=== PATIENT | male | born 1985 | race Caucasian/White ===

== ENCOUNTER 2021-10-23 13:21 | Emergency (ER) | payer BC, SELFPAY ==
[2021-10-23 13:33] VITALS: BP 130/96; PULSE 72; RESP 20; TEMP 36.7; O2SAT 96; BMI 23.8
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
--- NOTE | 2021-10-23 13:47 | CRLHL7_ITS ---
For Patients: As a result of the Cures Act, medical imaging exams and procedure reports are released immediately into your electronic medical record. You may view this report before your referring provider. If you have questions, please contact your health care provider. INDICATION: Trauma, right anterior rib pain TECHNIQUE: Chest and right ribs 2 views. COMPARISON: None FINDINGS: Cardiovascular and mediastinum: Heart size and vasculature are normal in caliber and appearance. Mediastinum is within normal limits. Lungs and pleural spaces: Lungs are clear. No sign of infiltrate or mass. No sign of pleural effusion. No pneumothorax. Bones and soft tissues: Detailed oblique images of the right ribs demonstrate no fractures or bone lesions. IMPRESSION: Unremarkable chest and right ribs. Dictated by Brice Madison MD @ 10/23/2021 2:23:12 PM Dictated by: Brice Madison MD @ 10/23/2021 14:23:18 (Electronically Signed)
[2021-10-23 15:12] VITALS: BP 126/93; PULSE 60; RESP 16; TEMP 36.7; O2SAT 100
== END 2021-10-23 15:15 | disposition home or self-care (01) ==
PROVIDERS: Emergency Provider Family Medicine
DX: S29.9XXA Unspecified injury of thorax, initial encounter (principal); Y04.0XXA Assault by unarmed brawl or fight, initial encounter
CPT/HCPCS: 71101; 93005; 99283; 99284

== ENCOUNTER 2024-07-31 12:12 | Emergency (ER) | payer OTHER, SELFPAY ==
--- OUTSIDE RECORDS SUMMARY | 2024-07-31 12:17 | XMS_ITS | Data Portability ---
Author Organization [facility], [facility] Address [address] [place] [address] Assessment No assessment recorded. Plan of Treatment Reminders Order Date Submit Date Provider Last Modified By Organization Details Last Modified Time Details Appointments None recorded. Lab None recorded. Referral None recorded. Procedures vasectomy (PROC) 2022 023 bcubias Not available 14:34:58 Surgeries None recorded. Imaging None recorded. Medication Orders hydrocodone 5 mg-acetamin ophen 325 mg tablet 2023 024 [facility]acy #[id number], [address] , [place], [address], 4 10:11:00 diazepam 10 mg tablet 2022 023 [facility] #[id number], [address] [place], [address], 3 12:22:32 Patient TargetsNo targets recorded. Patient InstructionsNo instructions recorded. Reason for Referral None Reported. Procedures Surgical History Date Name Laterality Status Provider Name and Address Organization Details Recorded Time 4 TB Vasectomy completed Lawrence Christie MD [address], [place], [address], [facility] 03/21/2023 10:09:21 Imaging Results None recorded. Procedure Notes None recorded. Medical Equipment None Reported. Allergies No known drug allergies Medications Name Sig Start Date Stop Date Status Note LastModified by Organization Details LastModified Time hydrocodone 5 mg-acetamino phen 325 mg tablet TAKE 1 TAB BY MOUTH NEEDED. MAY TAKE 1 TAB EVERY 4HRS NEEDED FOR PAIN.*PHARM ACY NOT CONTRACTED active Not Available Not Available N ot Available diazepam 10 mg tablet TAKE 1 TABLET BY MOUTH NEEDED 30-45 MINUTES BEFORE PROCEDURE. (PHARMACY NOT IN CONTRACT) active Not Available Not Available No t Available Vitals Date Recorded Body height Body mass index (BMI) Body weight Provider Name and Address Organization Details Last Updated DateTime 01/17/2023 157.48 cm 23.8 kg/m2 43442.01 g Lawrence Christie MD [address] [place] [address],[facility] [address], [place], [address] 01/17/2023 12:05:35 Social History Question Answer Notes LastModified by Organizat ion Details LastModified Time Tobacco Smoking Status Never Smoker Lawrence Christie MD [address] [place] [address],[facility] [address], [place], [address], [facility] 01/17/2023 12:06:04 What Is Your Level Of Caffeine Consumption? Moderate Information not available 01/17/2023 What Was The Date Of Your Most Recent Tobacco Screening? 01/17/2023 Information not available 01/17/2023 Sex: Unknown Functional Status Question Answer Note LastModified by Organization D etails LastModified Time What is your level of alcohol consumption? None Information not available 01/17/2023 Mental Status None recorded. Family History Relationship Description Onset Age of this Age Resolved Age Notes LastModified by Organization Details LastModified Time Father No current problems or disability Not available 01/17 12:05:53 Mother No current problems or disability Not available 01/17 12:05:53 Medical History No medical history recorded. Past Encounters Encounter ID Performer Location Encounter Start Date Encounter Closed Date Diagnosis/Indication Diagnosis SNOMED-CT Code Diagnosis ICD10 Code Diagnosis Note [id number] Lawrence Christie MD [facility] [address] [id number] 01/17/2023 11:59:46 01/26/2023 18:55:27 Counseling for sterilization done [id number] 9103 Z30.09 1. desires permanent sterilizat ion via vasectomyH e has a normal exam and we can proceed with an office vasectomy. We discussed the risks of the procedure. We discussed the recovery from this and the need for a f/u semen analysis in three months. He'll schedule the vasectomy when it is convenient for him. - Valium 10 mg prn (before procedure) - will need a public transit trolley driver Risks of the procedure include, but are not limited to:Infecti on requiring antibiotic sBleeding or Hematoma requiring observatio n or drainageSp erm granuloma causing lump and/or painSperm antibodies causing infertilit yCongestio n causing testicular or epididymal painPercep tible change in sensation during ejaculatio nTesticula r discomfort lasting several yearsSpont aneous return to fertilityN eed for negative follow-up semen analysis. [id number] Lawrence Christie MD [facility] [address] [place] [id number] 03/21/2023 09:29:38 03/24/2023 13:58:15 Male sterilization 503493111 Z30.2 1. S/P Vasectomy - ice pack to scrotum (30 minutes on / 30 minutes off) for 24 hours- minimal activity for 48 hours- may shower after 24 hours - no tub baths or swimming for 2 weeks- may remove Tegaderm after 48 hours- Tylenol 500 mg Q 6 hrs prn or [place] (5/325 mg) 1-2 tablets Q 6 hrs prn - (#10 dispensed) - may use Ibuprofen 600 mg TID prn pain (72 hours after the procedure) - The patient is aware that he needs to use control until proven to be infertile. - F/U in 3 months with semen analysis Health Concerns Section Related Observation LastModified by Organization Detai ls LastModified Time None Recorded Concern Status LastModified by Organization Details LastModified Time None Recorded Advance Directives Directive None Recorded Payers Insurance Date Sequence Insurance Name Policy Number Policy Sandy Covered Member ID Sandy Member ID Guarantor Name 02/01/2024 1 [place] [id number] Emmanuel Peña [id number] Emmanuel Peña 02/01/2024 1 [place] [id number] Emmanuel Peña [id number] Emmanuel Peña 02/01/2024 1 [place] [id number] Emmanuel Peña [id number] Emmanuel Peña Notes Date Note Type Note Provider Name and Address Organization Details Recorded Time 01/17/2023 text/html 37 yo male here today for a vasectomy consult. He is single with one child, age 10. He is currently not using contraceptives. His partner has 2 children (ages 11 and 8) - previously had IUD - recently stopped using BCPs. He has been considering a vasectomy one year. He denies trouble with erections or urination. He does carpet cleaning. Lawrence Christie MD [address] [place] [address],[address] [place] [address], [phone], [facility] 01/17/2023 13:31:29 03/21/2023 text/html 37 yo male here today for a vasectomy consult. He is single with one child, age 10. He is currently not using contraceptives. His partner has 2 children (ages 11 and 8) - previously had IUD - recently stopped using BCPs. He has been considering a vasectomy one year. He denies trouble with erections or urination. He does carpet cleaning. 03/21/23 - He presents for vasectomy - no change in history. Lawrence Christie MD [address] [place] [address],[address], [place], [address], [facility] 03/21/2023 10:11:12
[2024-07-31 12:53] VITALS: BP 140/99; PULSE 76; RESP 18; TEMP 36.4; O2SAT 98; BMI 27.4
[2024-07-31] MEDS: LIDOCAINE/EPINEP/TETRACAINE 3 ML GEL..ML. TOPICAL (13:10)
--- NOTE | 2024-07-31 13:22 | ED.NURSE ---
[facility] [employer] Superintendent office contacted regarding dog bite.
--- OUTSIDE RECORDS SUMMARY | 2024-07-31 13:26 | XMS_ITS | Clinical Summary ---
Author Organization [facility] Address [address] [place] [address] Care Team Providers Care Systems Manager Name Role Phone None Primary Care Provider Unavailabl e Allergies No known active allergies Medications No known medications Active Problems No known active problems Immunizations Immunization Administration Dates Next Due Tdap 08/10/2021 Social History Tobacco Use Types Packs/Day Years Used Date Smoking Tobacco: Never Passive Smoke Exposure: Never Smokeless Tobacco: Never Tobacco Cessation:Counseling Given: Not Answered Alcohol Use Standard Drinks/Week Comments Yes 0 (1 standard drink = 0.6 oz pur e alcohol) Social Connections Answer Date Recorded Frequency of Communication with Friends and Fami ly Not on file 12/20/2022 Sex and Gender Information Value Date Recorded Sex Assigned at Not on file Legal 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 Gender Identity Not on file Sexual Orientation Not on file Obstetrics History Last Filed Vital Signs Vital Sign Reading Time Taken Comments Blood Pressure 120/76 12/20/2022 2:20 PM CDT Pulse 68 12/20/2022 2:20 PM CDT Temperature - - Respiratory Rate - - Oxygen Saturation - - Inhaled Oxygen Concentration - - Weight 56.7 kg (125 lb) 12/20/2022 2:20 PM CDT Height 158 cm (5' 2.21) 12/20/2022 2:20 PM CDT Body Mass Index 22.71 12/20/2022 2:20 PM CDT Plan of Treatment Health Maintenance Due Date Last Done Comments Depression screening for age 12+ 1996 HIV for age 15-65 1999 Hepatitis C screening for ag e 18-79 2002 COVID-19 vaccine series ( season) 2023 BMI (ht and wt on same day) for age 18+ 12/21/2023 12/20/2022 Influenza Vaccine (Season Ended) 2024 Lipids for age 35-44 12/23/2027 12/22/2022 Tetanus booster 08/11/2031 08/10/2021 Tdap Completed 08/10/2021 Pneumococcal series for age 6-49 Aged Out No longer eligible based on patient's age to complete this topic Procedures Procedure Name Priority Date/Time Associated Diagnosis Comments LIPID PANEL W REFLEX MEASURED LDL Routine 12/22/2022 8:29 AM CDT Routine general medical examination at a health care facility from Last 3 Months or Most Recently Relevant to Health Maintenance Results * (ABNORMAL) LIPID PANEL W REFLEX MEASURED LDL (12/22/2022 8:29 AM CDT) CHOLESTEROL,TOTAL 213(H) 100 - 199 mg/dL 12/22/2022 4:39 PM CDT [facility] Comment: Cholesterol, Total Reference Ranges Desirable <200 mg/dL Borderline 200-239 mg/dL High >=240 mg/dL TRIGLYCERIDES 73 <150 mg/dL 12/22/2022 4:39 PM CDT [facility] HDL CHOLESTEROL 65 >40 mg/dL 4:39 PM CDT [facility] NON-HDL CHOLESTEROL 148(H) <145 mg/dl 12/22/2022 4:39 PM CDT [facility] CHOL/HDL RATIO 3.28 <4.50 12/22/2022 4:39 PM CDT [facility] LDL CHOLESTEROL 133(H) <=130 mg/dL 12/22/2022 4:39 PM CDT [facility] VLDL CHOLESTEROL 15 <=30 mg/dL 12/22/2022 4:39 PM CDT [facility] PROVIDER ORDERED STATUS RANDOM 12/22/2022 4:39 PM CDT [facility] Blood BLOOD SPECIMEN / Unknown Butterfly / Unknown 12/22/2022 8:29 AM CDT 12/22/2022 8:29 AM CDT us Antonio Durant MD CHEMISTRY Final Resul t [facility] [address] [place] [address], from Last 3 Months or Most Recently Relevant to Health Maintenance Insurance [facility] Care Teams Systems Manager Relationship Specialty Start Date End Date None . PCP - General 12/17/22
--- NOTE | 2024-07-31 14:06 | ED_ITS ---
HPI - Animal Bite General Date Seen: 07/31/24 Chief Complaint: Animal Bite Stated Complaint: Right Thumb Laceration (Dog Bite) Time Seen by Provider: 07/31/24 12:47 Source: patient Mode of arrival: ambulatory Limitations: no limitations History of Present Illness HPI narrative: Patient is a 39-year-old male presenting to the emergency department after dog bite. He got bit to the right thumb by a dog he some out on the road. [place] it had dog tags and a tag for rabies vaccine. No other concerns noted. States he washed it out at home. Last [employer] shot was 2 years ago. He states the dog was acting otherwise normal he thinks he just care did. Related Data Previous Rx's ?Medication ?Instructions ?Recorded amoxicillin 875 mg-potassium 1 tab PO BID #10 tabs clavulanate 125 mg tablet Allergies Allergy/AdvReac Type Severity Reaction Status Date / Time No Known Drug Allergies Allergy Verified 07/31/24 12:51 Review of Systems Narrative: Pertinent systems reviewed and were negative unless stated in HPI PFSH PFSH Social History Smoking Status: Former smoker Do you use any of these nicotine containing products: None Second hand tobacco smoke exposure: No How often do you have a drink containing alcohol: 2-4 times a month How many standard drinks containing alcohol do you have on a typical day: 1 or 2 How often do you have six or more drinks on one occasion: Never AUDIT-C Alcohol total score: 2 Non-prescribed substance use: denies use service: No Exam Narrative: Exam Narrative: Const: Well-nourished, Well-developed, in mild distress Eyes: PERRL, no conjunctival injection, and symmetrical lids HENT: Atraumatic external nose and ears. Moist mucous membranes. MSK:Extremities w/o deformity, full range of motion of his right thumb Skin: Laceration to the base the pulmonary of SPECT of the thumb measuring about 2 cm and is circular with a flap of skin held on by a small piece Neuro: Normal Muscle tone, No focal neurological deficits. Psych: Awake, Alert, & Oriented x3. Appropriate mood and affect. Const: Vital Signs, click to edit/add: Vital Signs - 24 hr 07/31/24 12:53 Temperature 97.6 F Pulse Rate [Pulse Oximeter] 76 Respiratory Rate 18 Blood Pressure [Ri ght Upper Arm] 140/99 H Pulse Oximetry 98 Oxygen Delivery Me thod Room Air Course Vital Signs Vital signs: Initial Vital Signs Temperature 97.6 F 07/31/24 12:53 Temperature Source Temporal Artery Scan 07/31/24 12:53 Pulse Rate 76 07/31/24 12:53 Respiratory Rate 18 07/31/24 12:53 Blood Pressure 140/99 H 07/31/24 12:53 Blood Pressure Mean 112 H 07/31/24 12:53 Pulse Oximetry 98 07/31/24 12:53 Oxygen Delivery Method Room Air 07/31/24 12:53 Vital Signs Temperature 97.6 F 07/31/24 12:53 Pulse Rate 76 07/31/24 12:53 Respiratory Rate 18 07/31/24 12:53 Blood Pressure 140/99 H 07/31/24 12:53 Pulse Oximetry 98 07/31/24 12:53 Oxygen Delivery Method Room Air 07/31/24 12:53 Temperature 97.6 F 07/31/24 12:53 Pulse Rate 76 07/31/24 12:53 Respiratory Rate 18 07/31/24 12:53 Blood Pressure 140/99 H 07/31/24 12:53 Pulse Oximetry 98 07/31/24 12:53 Oxygen Delivery Method Room Air 07/31/24 12:53 Medications Administered Medications: Discontinued Medications Generic Name Dose Route Start Last Admin Trade Name Freq PRN Reason Stop Dose Admin Lidocaine/Epinephrine/Tetracaine 3 ml 07/31/24 13:03 07/31/24 13:10 Lidocaine/Epinep/Tetracaine 3 Ml Gel..Ml. TOPICAL 07/31/24 13:04 3 ml ONCE ONE Administration MDM - Animal Bite MDM Narrative Medical decision making narrative: Patient is a 39-year-old male presenting for a dog bite. Considering the wound is gaping I did find necessary to close it. I do not see any signs of foreign bodies or tooth fragments on my exam and he is neurovascularly intact. No signs of deep structure injuries. Four sutures were placed with loose approximation. He tolerated the procedure well. And he is up-to-date on his tetanus and declined rabies vaccine. Will start him on Augmentin. Discharge Plan Discharge Clinical Impression: Bite by animal, Laceration Patient Disposition: Home, Self-Care Condition: Stable Instructions: Animal Bite (ED) Additional Instructions: Follow-up with your primary care provider or urgent care in the next 10 days to have the four sutures removed. For next 6 months, once sutures are removed, whenever you go outside put a dab of sunscreen over the laceration site to improve scar appearance. Topical antibiotics are not necessary at this time. Patient can shower but do not submerge the laceration until sutures are removed. Return to emergency department for re-evaluation for signs of infection as hand infections can worsen quickly. You likely see some redness around the area josé manuel orrow what fits keeps expanding or is becoming severely painful return for re- evaluation. If you develop any of the following signs called Kanavel's Signs it could be a sign of flexor tenosynovitis and is an emergency that you need to return to emergency department immediately -Pain with passive extension (often the first sign seen) -Percussion tenderness (tenderness over entire length of flexor tendon sheath) -Uniform swelling (symmetric finger swelling along length of the tendon sheath) -Flexion posture (flexed posture of involved digit at rest to minimize pain) Prescriptions: New amoxicillin-pot clavulanate 875-125 mg tablet 1 tab PO BID Qty: 10 0RF Follow Up/Referrals: Provider,Not a Local [Primary Care Provider, Family Practice] Stand Alone Forms: MyHealth Info Instructions Procedures Laceration Right thumb: Name of person performing procedure: Ozzy La Site: hand Side (If applicable): right Size (cm): 2 Description: flap, irregular and clean Depth: simple, single layer Local Anesthetic: other anesthetic (LET) Pre-repair: wound explored, irrigated extensively and deep structures intact Skin layer closed with: nylon Size (cm): 4-0 Number of sutures: 4 Technique: simple, interrupted
--- NOTE | 2024-07-31 14:26 | ED.NURSE ---
Right thumb cleansed, and covered with coban.
== END 2024-07-31 14:22 | disposition home or self-care (01) ==
PROVIDERS: Emergency Provider Student in an Organized Health Care Education/Training Program
DX: S61.051A Open bite of right thumb without damage to nail, initial encounter (principal); W54.0XXA Bitten by dog, initial encounter
CPT/HCPCS: 12001; 99283